=== PATIENT | female | born 1950 | race Caucasian/White ===

== ENCOUNTER 2018-09-10 08:31 | Emergency (ER) | payer MEDICARE, OTHER ==
[2018-09-10] MEDS: SOD CHLORIDE 0.9% 1,000 ML IV (09:38)
[2018-09-10 09:45] LABS: ADD MAN DIFF? NO
[2018-09-10 09:51] LABS: WHITE BLOOD COUNT 8.3 10^3/ul (4.8-10.8)
[2018-09-10 09:51] LABS: BASOPHILS % 0.4 % (0.0-2.0); EOSINOPHILS # 0.1 10^3/ul (0.0-0.5); EOSINOPHILS % 0.6 % (0.0-7.0); HEMATOCRIT 30.6 % (37.0-47.0); HEMOGLOBIN 9.7 g/dl (12.0-16.0); LYMPHOCYTES # 1.9 10^3/ul (0.8-2.9); LYMPHOCYTES % 23.5 % (15.0-51.0); MEAN CORPUSCULAR HEMOGLOBIN 30.9 pg (29.0-33.0); MEAN CORPUSCULAR HGB CONC 31.7 g/dl (32.0-37.0); MEAN CORPUSCULAR VOLUME 97.5 fl (82.0-101.0); MEAN PLATELET VOLUME 11.5 fl (7.4-10.4); MONOCYTE # 0.4 10^3/ul (0.3-0.9); MONOCYTES % 4.4 % (0.0-11.0); NEUTROPHIL # 5.9 10^3/ul (1.6-7.5); NEUTROPHILS % 70.9 % (39.0-77.0); PLATELET COUNT 316 10^3/UL (140-415); RED BLOOD COUNT 3.14 10^6/ul (4.20-5.40); RED CELL DISTRIBUTION WIDTH 13.3 % (11.5-14.5)
[2018-09-10] MEDS: LIDOCAINE 2%/EPI MPF (SDV) 20 ML VIAL INJ (09:52)
[2018-09-10 10:09] LABS: INR 0.97
[2018-09-10 10:10] LABS: PARTIAL THROMBOPLASTIN TIME 26.8 Sec (23.0-35.0)
[2018-09-10 10:18] LABS: ALANINE AMINOTRANSFERASE 66 IU/L (13-69); ALBUMIN/GLOBULIN RATIO 1.11; ALKALINE PHOSPHATASE 126 IU/L (42-121); ANION GAP 11 (5-13); ASPARTATE AMINO TRANSFERASE 88 IU/L (15-46); BILIRUBIN,INDIRECT 0.5 mg/dl (0-1.1); BILIRUBIN,TOTAL 0.5 mg/dl (0.2-1.3); BLOOD UREA NITROGEN 12 mg/dl (7-20); CALCIUM 7.9 mg/dl (8.4-10.2); CARBON DIOXIDE 30 mmol/L (21-31); CHLORIDE 102 mmol/L (97-110); CREATININE 0.78 mg/dl (0.44-1.00); Estimated GFR > 60 mL/min (>60); GLUCOSE 222 mg/dl (70-220); POTASSIUM 3.1 mmol/L (3.5-5.1); SODIUM 143 mmol/L (135-144); TOTAL PROTEIN 5.7 g/dl (6.1-8.1)
[2018-09-10 10:30] LABS: TROPONIN-I 0.014 ng/ml (0.000-0.120)
[2018-09-10] MEDS: POTASSIUM CHLORIDE (SR) 10 MEQ TAB PO (11:04)
== END 2018-09-10 11:13 | disposition home or self-care (01) ==
LOC: E/R 08:31
DX: S01.512A Laceration without foreign body of oral cavity, initial encounter (principal); S09.90XA Unspecified injury of head, initial encounter; S00.33XA Contusion of nose, initial encounter; E11.9 Type 2 diabetes mellitus without complications; I10 Essential (primary) hypertension; W01.198A Fall on same level from slipping, tripping and stumbling with subsequent striking against other object, initial encounter; Y92.9 Unspecified place or not applicable; Z79.82 Long term (current) use of aspirin; Z79.84 Long term (current) use of oral hypoglycemic drugs
CPT/HCPCS: 70450; 70486; 80053; 84484; 85025; 85610; 85730; 86850; 86900; 86901; 93005; 99285-25